=== PATIENT | female | born 1970 | race Hispanic/Latino ===

== ENCOUNTER 2024-12-20 22:51 | Emergency (ER) | payer BC ==
[~2024-12-20 22:51] MED LIST: Iopamidol 370 76% 100 ML VIAL ONE
[2024-12-20 23:09] LABS: #Basophils 0.1 thou/uL (0.0-0.2); #Eosinophils 0.3 thou/uL (0.0-0.7); #Lymphocytes 3.5 thou/uL (1.20-3.40); #Monocytes 0.5 thou/uL (0.11-0.59); #Neutrophils 3.6 thou/uL (1.40-6.50); %Basophils 1.4 % (0.0-1.0); %Eosinophils 3.5 % (0.0-10.0); %Lymphocytes 44.0 % (21.0-51.0); %Monocytes 5.7 % (0.0-10.0); %Neutrophils 45.4 % (42.0-75.0); Hematocrit 42.0 % (36.0-47.0); Hemoglobin 13.7 g/dL (12.0-16.0); Mean Corpuscular Hemoglobin 29.2 pg (27.0-31.0); Mean Corpuscular Volume 89.5 fl (78.0-98.0); Platelet Count 396 10x3/uL (130-400); Red Blood Cell (RBC) Count 4.69 mill/uL (4.20-5.40); White Blood Cell (WBC) Count 7.9 10x3/uL (4.8-10.8)
[2024-12-20 23:18] LABS: INR-International Normal Ratio 0.9; Prothrombin Time 12.3 sec (12.0-14.7)
[2024-12-20 23:19] LABS: PTT 28.4 sec (22.9-36.1)
[2024-12-20 23:29] LABS: Troponin I Less than 0.010 ng/mL (< 0.028)
[2024-12-20] MEDS ORDERED: Aspirin 325 MG TAB ONE (23:29)
[2024-12-20 23:32] LABS: ALT (SGPT) 33 U/L (Less than 34); AST (SGOT) 32 U/L (11-34); Albumin 5.0 g/dL (3.1-4.5); Alkaline Phosphatase 137 U/L (40-110); Anion Gap 20 mmol/L (10-20); BUN (Urea Nitrogen) 13 mg/dL (9.8-20.1); Bilirubin, Total 0.3 mg/dL (0.3-1.2); Calc. Creatinine Clearance 0 mL/min (70-130); Calcium 9.6 mg/dL (7.8-10.44); Carbon Dioxide 21 mmol/L (22-29); Chloride 104 mmol/L (98-107); Globulin 3.2 g/dL (2.4-3.5); Glucose 128 mg/dL (70-105); Potassium 3.9 mmol/L (3.5-5.1); Sodium 141 mmol/L (136-145)
== END 2024-12-21 03:15 | disposition short-term general hospital (02) ==
LOC: MADERS 22:51
DX: I10 Essential (primary) hypertension (principal); E03.9 Hypothyroidism, unspecified; R29.701 NIHSS score 1; Z79.890 Hormone replacement therapy
CPT/HCPCS: 70450; 70496; 70498; 71045; 80053; 84443; 84484; 85025; 85610; 85730; 93005; 94760; Q9967